=== PATIENT | male | born 1980 | race African-American/Black ===

== ENCOUNTER 2020-09-14 21:28 | Emergency (ER) | payer MEDICAID ==
[~2020-09-14] VITALS: Ht 177.8 cm; Wt 82.0 kg
[2020-09-14 21:29] VITALS: BP 145/94
== END 2020-09-14 22:38 | disposition home or self-care (01) ==
LOC: ER 21:28
DX: B86 Scabies (principal); R21 Rash and other nonspecific skin eruption
CPT/HCPCS: 99281